=== PATIENT | female | born 1960 | race African-American/Black ===

== ENCOUNTER 2023-02-22 15:44 | Emergency (ER) | payer SELFPAY ==
[2023-02-22 15:50] VITALS: TEMP 98; BMI 34.4
[2023-02-22 17:14] LABS: BASO % 0.6 % (0-2.0); HEMATOCRIT 38.6 % (32.4-45.2); HEMOGLOBIN 13.3 GM/dL (10.7-15.3); LYMPH % 42.3 % (8-40); MCH 32.7 pg (25.7-33.7); MCHC 34.5 g/dl (32.0-36.0); MEAN CELL VOLUME 94.9 fl (80-96); MEAN PLT VOLUME 8.6 fl (7.5-11.1); MONO % 7.7 % (3.8-10.2); NEUT % 47.4 % (42.8-82.8); PLATELET COUNT 273 10^3/uL (134-434); RBC 4.07 M/mm3 (3.60-5.2); RDW 13.6 % (11.6-15.6); WHITE BLOOD COUNT 5.7 K/mm3 (4.0-10.0)
[2023-02-22 17:25] LABS: INR 0.98 (0.83-1.09); PROTHROMBIN TIME (PATIENT) 11.4 SEC (9.7-13.0)
[2023-02-22 17:28] LABS: ACTIVATED PTT 28.4 SECONDS (25.2-36.5)
[2023-02-22 17:41] LABS: CALCIUM 9.8 mg/dL (8.5-10.1)
[2023-02-22 17:42] LABS: ALBUMIN 3.4 g/dl (3.4-5.0); BLOOD UREA NITROGEN 16.4 mg/dL (7-18)
[2023-02-22 17:46] LABS: BILIRUBIN,TOTAL 0.6 mg/dL (0.2-1); TOT PROT 7.6 g/dl (6.4-8.2)
[2023-02-22 20:08] VITALS: BP 154/83; PULSE 83; RESP 18
== END 2023-02-22 21:00 | disposition left against medical advice (07) ==
LOC: JERFT 15:44
PROC: 0H9U3ZZ Drainage of Left Breast, Percutaneous Approach (ICD-10-PCS; principal; 2023-02-22)
DX: N61.1 Abscess of the breast and nipple (principal)
CPT/HCPCS: 36415; 71260-TC; 80053; 85025; 85610; 85730; 86850; 86900; 86901; 99284-25

== ENCOUNTER 2025-02-02 15:26 | Emergency (ER) | payer BC, OTHER ==
[2025-02-02 15:44] VITALS: RESP 17; BMI 33.3
[2025-02-02] MEDS: IBUPROFEN 800 MG/8 ML IJ IVPB ONE (17:12)
[2025-02-02] MEDS ORDERED: IBUPROFEN 400 MG TABLET (FP) PO ONE (17:17)
[2025-02-02] MEDS ORDERED: LIDOCAINE 5% TOPICAL PATCH ONE (17:18)
[2025-02-02] MEDS: IBUPROFEN 400 MG TABLET (FP) PO ONE (17:22)
[2025-02-02] MEDS: LIDOCAINE 5% TOPICAL PATCH TP ONE (17:22)
[2025-02-02] MEDS ORDERED: AZITHROMYCIN 500 MG TABLET ONE (20:43)
[2025-02-02] MEDS: CEFUROXIME AXETIL 500 MG TABLET PO ONE (20:46)
[2025-02-02] MEDS: AZITHROMYCIN 250 MG TABLET PO ONE (20:46)
[2025-02-02 20:47] VITALS: BP 148/80; PULSE 70; TEMP 98.1
[2025-02-02] MEDS ORDERED: LIDOCAINE PATCH REMOVAL MC SCH (22:00)
== END 2025-02-02 21:02 | disposition home or self-care (01) ==
LOC: JER 15:26
DX: J18.1 Lobar pneumonia, unspecified organism (principal); R21 Rash and other nonspecific skin eruption
CPT/HCPCS: 71046-TC-FY; 73030-TC-LT-FY; 93971; 99284-25